=== PATIENT | male | born 1980 | race Two or more races ===

== ENCOUNTER 2019-06-15 16:41 | Emergency (ER) | payer SELFPAY ==
[~2019-06-15] VITALS: Ht 172.7 cm; Wt 61.7 kg
[2019-06-15 16:52] VITALS: Ht 172.7 cm; Wt 61.7 kg
[2019-06-15 18:37] VITALS: BP 132/78
== END 2019-06-15 18:38 | disposition home or self-care (01) ==
LOC: ED 16:41
DX: J06.9 Acute upper respiratory infection, unspecified (principal)
CPT/HCPCS: 87804; Q0092